=== PATIENT | male | born 1960 | race African-American/Black ===

== ENCOUNTER 2022-06-05 19:18 | Emergency (ER) | payer OTHER ==
[~2022-06-05] VITALS: Ht 170.2 cm; Wt 95.3 kg
[2022-06-05] MEDS ORDERED: SOD POLYSTYRENE SULFONATE SUSP 15 GM/60 ML BTL PO ONE (20:45)
[2022-06-05] MEDS ORDERED: SODIUM CHLORIDE 0.9% 1000ML 1,000 ML IV SCH (20:45)
[2022-06-05] MEDS ORDERED: INSULIN REGULAR, HUMAN 100 UNIT/1 ML SQ ONE (20:45)
[2022-06-05] MEDS ORDERED: SPS15 GM/60 M PO (22:35)
== END 2022-06-05 23:27 | disposition home or self-care (01) ==
LOC: FSED 19:34
DX: D64.9 Anemia, unspecified (principal); E11.65 Type 2 diabetes mellitus with hyperglycemia; N19 Unspecified kidney failure; E87.5 Hyperkalemia; I10 Essential (primary) hypertension; E78.5 Hyperlipidemia, unspecified; I25.10 Atherosclerotic heart disease of native coronary artery without angina pectoris; R94.31 Abnormal electrocardiogram [ECG] [EKG]; Z95.1 Presence of aortocoronary bypass graft
CPT/HCPCS: 36415; 74176; 80053; 81003; 82948; 85025; 93005; 99284; J7030

== ENCOUNTER 2022-06-07 12:17 | Observation (INO) | payer OTHER ==
[~2022-06-07] VITALS: Ht 170.2 cm; Wt 95.3 kg
[~2022-06-07 12:17] MED LIST: SPS15 GM/60 M PO
[2022-06-07 14:00] LABS: BASOPHILS # (AUTO) 0.1 (0.0-0.1); BASOPHILS % 0.8 % (0.0-1.0); EOSINOPHILS # (AUTO) 0.2 (0.0-0.4); EOSINOPHILS % 3.2 % (0.0-6.0); HEMATOCRIT 36.9 % (38.2-49.6); HEMOGLOBIN 11.9 g/dL (14.0-18.0); LYMPHOCYTES # (AUTO) 1.5 (1.0-3.2); LYMPHOCYTES % 24.6 % (18.0-39.1); MEAN CORPUSCULAR HEMOGLOBIN 29.2 pg (28-32); MEAN CORPUSCULAR HGB CONC 32.2 g/dL (31-35); MEAN CORPUSCULAR VOLUME 90.4 fL (81-99); MONOCYTES # (AUTO) 0.3 (0.2-0.8); MONOCYTES % 4.8 % (4.4-11.3); NEUTROPHILS # (AUTO) 4.1 (2.1-6.9); NEUTROPHILS % 66.4 % (38.7-80.0); PLATELET COUNT 313 x10e3/uL (140-360); RED BLOOD COUNT 4.08 x10e6/uL (4.3-5.7); RED CELL DISTRIBUTION WIDTH 14.5 % (11.7-14.4)
[2022-06-07 14:21] LABS: ALBUMIN 4.1 g/dL (3.5-5.0); ANION GAP 18.8 mmol/L (8-16); CALCIUM 9.6 mg/dL (8.4-10.2); CREATININE, SERUM 4.44 mg/dL (0.72-1.25)
[2022-06-07 14:25] LABS: POTASSIUM 5.8 mmol/L (3.5-5.1)
[2022-06-07] MEDS ORDERED: SODIUM BICARBONATE 8.4% INJ 50 ML SYR IV STA (14:48)
[2022-06-07] MEDS ORDERED: ALBUTEROL SULF 0.083% NEB SOLN 3 ML NEB NEB STA (14:48)
[2022-06-07] MEDS ORDERED: DEXTROSE 50% SYRINGE 50 ML IV STA (14:48)
[2022-06-07] MEDS ORDERED: SODIUM CHLORIDE 0.9% 1000ML 1,000 ML IV SCH (15:00)
[2022-06-07] MEDS ORDERED: SOD POLYSTYRENE SULFONATE SUSP 15 GM/60 ML BTL PO ONE ×2 (15:00)
[2022-06-07] MEDS ORDERED: CALCIUM GLUCONATE 10% INJ 13.95 MEQ in SODIUM CHLORIDE 0.9% 100 ML IV ONE (15:00)
[2022-06-07] MEDS ORDERED: INSULIN REGULAR, HUMAN 100 UNIT/1 ML IV ONE (15:00)
[2022-06-07] MEDS ORDERED: LACTULOSE SYRUP 20 GM/30 ML UDC PO ONE (15:00)
[2022-06-07] MEDS ORDERED: SODIUM CHLORIDE 0.9% 0 ML ONE (16:01)
[2022-06-07] MEDS ORDERED: SODIUM BICARBONATE 8.4% 75 ML in SODIUM CHLORIDE 0.45% 1,000 ML IV SCH (17:00)
[2022-06-07] MEDS: SODIUM BICARBONATE 650 MG TAB PO SCH ×2 (17:20→21:31)
[2022-06-07 19:48] VITALS: BP 153/87
[2022-06-07 21:00] VITALS: BP 153/87
[2022-06-07] MEDS ORDERED: ASPIRIN81 MG PO (21:46)
[2022-06-07] MEDS ORDERED: FUROSEMIDE40 MG PO (21:46)
[2022-06-07] MEDS ORDERED: ATORVASTATIN CA80 MG PO (21:46)
[2022-06-07] MEDS ORDERED: APAP/CODEINE PO (21:46)
[2022-06-07] MEDS ORDERED: AMLODIPINE BESY10 MG PO (21:46)
[2022-06-07] MEDS ORDERED: CARVEDILOL12.5 MG PO (21:46)
[2022-06-07] MEDS ORDERED: SPIRIVA18 MCG INH (21:46)
[2022-06-07] MEDS ORDERED: GABAPENTIN300 MG PO (21:46)
[2022-06-07] MEDS ORDERED: SYMBICORT 16010.2 GM INH (21:46)
[2022-06-07] MEDS ORDERED: BRILINTA90 MG PO (21:46)
[2022-06-07] MEDS ORDERED: NOVOLIN 70100 UNIT/3 SQ ×2 (21:46)
[2022-06-08 04:00] VITALS: BP 118/71
[2022-06-08 05:59] LABS: BASOPHILS % 0.4 % (0.0-1.0); EOSINOPHILS # (AUTO) 0.3 (0.0-0.4); EOSINOPHILS % 3.4 % (0.0-6.0); HEMATOCRIT 38.2 % (38.2-49.6); HEMOGLOBIN 11.9 g/dL (14.0-18.0); LYMPHOCYTES # (AUTO) 1.4 (1.0-3.2); LYMPHOCYTES % 19.2 % (18.0-39.1); MEAN CORPUSCULAR HEMOGLOBIN 29.2 pg (28-32); MEAN CORPUSCULAR HGB CONC 31.2 g/dL (31-35); MEAN CORPUSCULAR VOLUME 93.6 fL (81-99); MONOCYTES # (AUTO) 0.4 (0.2-0.8); MONOCYTES % 5.7 % (4.4-11.3); NEUTROPHILS # (AUTO) 5.2 (2.1-6.9); PLATELET COUNT 297 x10e3/uL (140-360); RED BLOOD COUNT 4.08 x10e6/uL (4.3-5.7); RED CELL DISTRIBUTION WIDTH 13.9 % (11.7-14.4)
[2022-06-08 06:25] LABS: ALBUMIN 3.9 g/dL (3.5-5.0); ALBUMIN/GLOBULIN RATIO 1.1 (0.8-2.0); ANION GAP 17.4 mmol/L (8-16); CALCIUM 9.7 mg/dL (8.4-10.2); CREATININE, SERUM 4.07 mg/dL (0.72-1.25); POTASSIUM 4.4 mmol/L (3.5-5.1)
[2022-06-08] MEDS ORDERED: DEXTROSE 50% SYRINGE 50 ML IV PRN ×3 (06:30)
[2022-06-08 07:56] VITALS: BP 116/59
[2022-06-08 08:12] VITALS: BP 116/59
[2022-06-08] MEDS: SODIUM BICARBONATE 650 MG TAB PO SCH ×2 (08:33→14:05)
[2022-06-08] MEDS: INSULIN REGULAR, HUMAN 100 UNIT/1 ML SQ SCH ×2 (08:40→11:42)
[2022-06-08 11:42] VITALS: BP 144/88
[2022-06-08 13:16] LABS: ANION GAP 18.6 mmol/L (8-16); CALCIUM 9.7 mg/dL (8.4-10.2); CREATININE, SERUM 3.72 mg/dL (0.72-1.25); POTASSIUM 4.6 mmol/L (3.5-5.1)
== END 2022-06-08 14:31 | disposition home or self-care (01) ==
LOC: ER 12:26 → ERHOLD 14:56 → MED/SURG3 18:51
PROVIDERS: ADMIT Internal Medicine; ATTEND Internal Medicine
DX: E87.5 Hyperkalemia (principal); E11.22 Type 2 diabetes mellitus with diabetic chronic kidney disease; E11.65 Type 2 diabetes mellitus with hyperglycemia; I12.0 Hypertensive chronic kidney disease with stage 5 chronic kidney disease or end stage renal disease; N18.5 Chronic kidney disease, stage 5; E87.20 Acidosis, unspecified; E11.21 Type 2 diabetes mellitus with diabetic nephropathy; I69.354 Hemiplegia and hemiparesis following cerebral infarction affecting left non-dominant side; I25.2 Old myocardial infarction; Z20.822 Contact with and (suspected) exposure to COVID-19; Z79.4 Long term (current) use of insulin; Z79.82 Long term (current) use of aspirin; Z79.899 Other long term (current) drug therapy; Z95.1 Presence of aortocoronary bypass graft; Z89.431 Acquired absence of right foot; Z87.891 Personal history of nicotine dependence
CPT/HCPCS: 0223U; 36415 ×2; 76770; 80053 ×2; 82948 ×2; 85025 ×2; 93005; 94799; 99284; G0378 ×2; J0612; J7030; J7050; J7799; 80048

== ENCOUNTER 2024-05-20 19:31 | Emergency (ER) | payer MEDICARE, OTHER ==
[~2024-05-20] VITALS: Ht 167.6 cm; Wt 73.0 kg
[~2024-05-20 19:31] MED LIST changes: +AMLODIPINE BESY10 MG PO; +APAP/CODEINE PO; +ASPIRIN81 MG PO; +ATORVASTATIN CA80 MG PO; +BRILINTA90 MG PO; +CARVEDILOL12.5 MG PO; +FUROSEMIDE40 MG PO; +GABAPENTIN300 MG PO; +NOVOLIN 70100 UNIT/3 SQ; +SPIRIVA18 MCG INH; +SYMBICORT 16010.2 GM INH
[2024-05-20 19:55] VITALS: PULSE 86; RESP 17
[2024-05-20] MEDS ORDERED: NEURONTIN100 MG PO (20:25)
[2024-05-20 20:54] VITALS: TEMP 98
[2024-05-20 21:17] VITALS: BP 167/72; RESP 18; O2SAT 100
== END 2024-05-20 21:15 | disposition home or self-care (01) ==
LOC: FSED 19:36
DX: R20.0 Anesthesia of skin (principal); G56.02 Carpal tunnel syndrome, left upper limb; E11.40 Type 2 diabetes mellitus with diabetic neuropathy, unspecified; I12.0 Hypertensive chronic kidney disease with stage 5 chronic kidney disease or end stage renal disease; E11.22 Type 2 diabetes mellitus with diabetic chronic kidney disease; N18.6 End stage renal disease; Z99.2 Dependence on renal dialysis; E78.5 Hyperlipidemia, unspecified; I25.10 Atherosclerotic heart disease of native coronary artery without angina pectoris; Z86.73 Personal history of transient ischemic attack (TIA), and cerebral infarction without residual deficits; I25.2 Old myocardial infarction
CPT/HCPCS: 70450; 99283

== ENCOUNTER 2024-09-10 14:22 | Emergency (ER) | payer OTHER ==
[~2024-09-10] VITALS: Ht 167.6 cm; Wt 74.0 kg
[~2024-09-10 14:22] MED LIST changes: +NEURONTIN100 MG PO
[2024-09-10 14:25] VITALS: PULSE 84; RESP 17; TEMP 98.2; O2SAT 100
[2024-09-10] MEDS ORDERED: SOD POLYSTYRENE SULFONATE SUSP 15 GM/60 ML BTL ONE (15:14)
[2024-09-10] MEDS: SOD POLYSTYRENE SULFONATE SUSP 15 GM/60 ML BTL PO ONE (15:19)
[2024-09-10] MEDS ORDERED: KIONEX 1515 GM/60 M PO (15:33)
== END 2024-09-10 15:25 | disposition home or self-care (01) ==
LOC: FSED 14:28
DX: N18.4 Chronic kidney disease, stage 4 (severe) (principal); E87.5 Hyperkalemia; I10 Essential (primary) hypertension; E11.9 Type 2 diabetes mellitus without complications; I25.2 Old myocardial infarction; I25.10 Atherosclerotic heart disease of native coronary artery without angina pectoris; E78.5 Hyperlipidemia, unspecified; Z86.73 Personal history of transient ischemic attack (TIA), and cerebral infarction without residual deficits; Z99.2 Dependence on renal dialysis; Z91.158 Patient's noncompliance with renal dialysis for other reason
CPT/HCPCS: 80053; 99284

== ENCOUNTER 2024-09-27 10:16 | Emergency (ER) | payer MEDICARE ==
[~2024-09-27] VITALS: Ht 167.6 cm; Wt 73.9 kg
[~2024-09-27 10:16] MED LIST changes: +KIONEX 1515 GM/60 M PO
[2024-09-27 10:32] VITALS: TEMP 98
[2024-09-27 11:49] VITALS: PULSE 75; RESP 18; O2SAT 100
[2024-09-27] MEDS: CALCIUM GLUC 1 G/50 ML NACL 50 ML IV ONE (12:25)
[2024-09-27 13:08] VITALS: BP 194/88; PULSE 71
[2024-09-27] MEDS: METOPROLOL TARTRATE INJ 1 MG/ML VIAL IV ONE (13:08)
[2024-09-30] MEDS ORDERED: SPS15 GM/60 M PO (14:31)
== END 2024-09-27 13:34 | disposition left against medical advice (07) ==
LOC: FSED 10:46
DX: I12.9 Hypertensive chronic kidney disease with stage 1 through stage 4 chronic kidney disease, or unspecified chronic kidney disease (principal); E11.22 Type 2 diabetes mellitus with diabetic chronic kidney disease; N18.9 Chronic kidney disease, unspecified; Z99.2 Dependence on renal dialysis; I16.0 Hypertensive urgency; E87.5 Hyperkalemia; E78.5 Hyperlipidemia, unspecified; Z86.73 Personal history of transient ischemic attack (TIA), and cerebral infarction without residual deficits; I25.2 Old myocardial infarction; R94.31 Abnormal electrocardiogram [ECG] [EKG]
CPT/HCPCS: 71046; 93005; 99284

== ENCOUNTER 2024-12-10 10:54 | Emergency (ER) | payer MEDICARE ==
[2024-12-10 11:00] VITALS: PULSE 86; RESP 20; TEMP 99.3; O2SAT 94
== END 2024-12-10 11:59 | disposition home or self-care (01) ==
LOC: FSED 10:58
DX: E87.5 Hyperkalemia (principal); I12.9 Hypertensive chronic kidney disease with stage 1 through stage 4 chronic kidney disease, or unspecified chronic kidney disease; E11.22 Type 2 diabetes mellitus with diabetic chronic kidney disease; E11.65 Type 2 diabetes mellitus with hyperglycemia; N18.4 Chronic kidney disease, stage 4 (severe); Z99.2 Dependence on renal dialysis; Z95.1 Presence of aortocoronary bypass graft; F41.9 Anxiety disorder, unspecified; F32.A Depression, unspecified
CPT/HCPCS: 80053; 99282